=== PATIENT | male | born 1955 | race Caucasian/White ===

== ENCOUNTER 2016-12-30 06:16 | Day surgery (SDC) | payer MEDICAID ==
[2016-12-08 07:45] VITALS: BMI 35.9
[2016-12-30] MEDS ORDERED: Propofol 10 mg/ml Inj (20 ML) ONE (07:22)
[2016-12-30] MEDS ORDERED: Midazolam 2 MG/2 ML VIAL ONE (07:22)
[2016-12-30] MEDS: Lidocaine 1% Inj (20ml) ONE ×2 (08:14→08:58)
[2016-12-30] MEDS ORDERED: Lactated Ringer's 1,000 ML IV ONE ×3 (08:14→08:48)
[2016-12-30] MEDS: Bupivacaine-Epi 0.25%-1:200,000 PF Inj ONE ×2 (08:14→08:58)
[2016-12-30] MEDS: ceFAZolin IV 2 gm in Dextrose 1 GM/50 ML BAG IVPB ONE ×2 (08:15→08:45)
[2016-12-30] MEDS ORDERED: Rocuronium 10 mg/ml (5 ml) ONE ×3 (08:45→11:51)
[2016-12-30] MEDS ORDERED: Morphine 4 MG/ML VIAL ONE ×2 (11:14→11:53)
[2016-12-30] MEDS ORDERED: Neostigmine Methylsulfate 3mg/3ml Syringe IV ONE ×2 (11:36→11:51)
[2016-12-30] MEDS: HYDROmorphone 0.5 mg/0.5 ml ISec IVP PRN ×3 (12:07→13:02)
[2016-12-30] MEDS ORDERED: Oxycodone/Acetaminophen 5/325 mg Tab PO ONE ×2 (12:10→14:45)
--- NOTE | 2016-12-30 12:17 | PCM.SURG1 ---
Surgeon's Initial Post Op Note - Surgeon's Notes Surgeon: Olya Program Support Clerk: PGY4, Jan PGY2 Type of Anesthesia: General Endo Pre-Operative Diagnosis: Ventral Incisional Hernia, R inguinal hernia Operative Findings: Ventral Incisional Hernia, Bilateral inguinal hernias Post-Operative Diagnosis: Ventral Incisional Hernia, Bilateral inguinal hernias Operation Performed: Robotic assisted laparoscopic Ventral incisional hernia repair with mesh, Bilateral inguinal hernia repair with mesh Specimen/Specimens Removed: hernia sac contents Estimated Blood Loss: EBL {In ML}: 20 Blood Products Given: N/A Drains Used: No Drains Post-Op Condition: Good Date of Surgery/Procedure: 12/30/16 Time of Surgery/Procedure: 09:00
[2016-12-30 14:09] VITALS: TEMP 98
[2016-12-30 14:34] VITALS: BP 133/68; PULSE 73; RESP 18; O2SAT 100
[2016-12-30] MEDS ORDERED: Oxycodone/Acetaminophen 5/325 mg Tab ONE (14:43)
--- NOTE | 2016-12-31 08:01 | OP ---
PROCEDURE DATE: 12/30/2016 PREOPERATIVE DIAGNOSES: 1. Right inguinal hernia, possible bilateral. 2. Recurrent umbilical ventral hernia. 3. Possible postoperative adhesions. 4. S/P Open appendectomy. POSTOPERATIVE DIAGNOSES: 1. Right inguinal hernia, possible bilateral. 2. Recurrent umbilical ventral hernia. 3. Possible postoperative adhesions. 4. S/P Open appendectomy. PROCEDURE PERFORMED: 1. Robotic right inguinal hernia repair with the mesh. 2. Robotic left inguinal hernia repair with the mesh. 3. Robotic incisional ventral hernia repair with the mesh. 4. Robotic extensive lysis of adhesions. PROCEDURE DONE BY: Isacc Dobson MD PATIENT ADMITTING CLERK: ALPESH De Anda and Deshawn Perez, PGY-4 resident. TYPE OF ANESTHESIA: General endotracheal tube anesthesia. ESTIMATED BLOOD LOSS: Around 20 mL. DRAINS: None in pathology. PATHOLOGY: The incisional ventral hernial sac and content was sent for the pathology. COMPLICATIONS: None. INTRAOPERATIVE FINDINGS: The patient had right direct and indirect inguinal hernia and the patient had a left direct inguinal hernia and the patient also had supraumbilical ventral incisional hernia, and the patient had extensive postoperative adhesions due to the appendectomy as well as the patient had omental adhesion from the previous umbilical hernia. On intraoperative steps, this 61-year-old male who was diagnosed with right inguinal hernia with possible bilateral inguinal hernia and the patient also had supraumbilical hernia and the patient was consented for the robotic bilateral inguinal hernia repair with the mesh as well as robotic umbilical/incisional hernia repair with the mesh. DESCRIPTION OF THE PROCEDURE: He was brought to the OR, placed supine on the operating room table. After induction of the anesthesia, the abdomen was prepped and draped in the usual sterile fashion. The Lim catheter was placed and using the Visiport technique on the left upper quadrant, the peritoneal cavity was entered and Pneumo was created. Another three 8 mm port was placed in upper abdomen as well as the left side and after the robot was brought in, camera arm as well as arm 1 and arm 2 was docked and patient found to have right direct inguinal hernia as well the left direct inguinal hernia and the incision was made from the right anterior superior iliac spine up to the left anterior superior iliac spine and the peritoneum was dissected. Due to the previous appendectomy incision, the patient had extensive adhesion and extensive adhesiolysis was done to mobilize the peritoneum and the dissection was carried down medially up to the pubic symphysis. Lateral to the lateral abdominal wall on the right side and the direct hernial sac was reduced. The vas deferens and spermatic cord vessels were identified and peritoneum was dissected inferiorly. The same dissection was done on the left side and the peritoneum was dissected from the lateral abdominal wall. The peritoneal hernial sac was reduced back and vas deferens and spermatic cord vessels were identified. Now, the right and left anatomical mesh was placed and the mesh was implanted. After proper implantation of the mesh, peritoneum was sutured with a 0 Vicryl as well as 2-0 Vicryl V-Loc continuous suture. After that robot was re-docked on the left flank and grasper as well as the hook was placed and the omental attachment was reduced and the part of the hernial sac and content was sent to the table for the pathology and the hernial defect was closed with number 1 Prolene V-Loc continuous sutures in 2 layer and 9 cm circular mesh was implanted. After proper implantation of the mesh, all the port was taken out under vision. Pneumo was deflated. All the port sites was closed in 1 layer with 0 Vicryl interrupted sutures, skin with a 4-0 Monocryl, and dry sterile dressing was applied. The patient tolerated the procedure well. Count of the instruments was correct. There was no apparent complications. The patient was extubated in OR, sent to the postanesthesia care unit in stable condition. Isacc Dobson MD MTDD
== END 2016-12-30 15:59 | disposition home or self-care (01) ==
LOC: C.SDS 06:16
PROVIDERS: ATTEND Surgery Surgical Critical Care
DX: K40.20 Bilateral inguinal hernia, without obstruction or gangrene, not specified as recurrent (principal); K42.9 Umbilical hernia without obstruction or gangrene; K43.2 Incisional hernia without obstruction or gangrene; Z87.891 Personal history of nicotine dependence
CPT/HCPCS: 49650; 49654; 88302; J0131; J0690; J1170; J2001; J2250; J2270; J2405; J2704; J2710; J3010; J7120